=== PATIENT | female | born 1950 | race Caucasian/White ===

== ENCOUNTER 2017-04-18 10:13 | Outpatient (RCR) | payer OTHER ==
--- NOTE | 2017-04-19 15:27 | RS.OPPTEV2 ---
Date of Note: 04/18/17 Visit #: 1 Date of Evaluation: 04/18/17 Payer Source: MEDICARE Surgery Performed?: No Treatment Diagnosis: low back pain History of Condition/Mechanism of Injury:: pt has had LBP for approx 2 yrs started after fall. Prior Level of Function.....Patient was independent with: ADL's, Self Care, Caregiving, Ambulation/Mobility, Community Integration/Access Functional Limitations: Sleep, Self Care, ADL's, Standing, Bending, Ambulation, Community Access/Integration Current Subjective/complaints:: pt states she has been getting epidural injections every [address] Hinojosa in pain management. pt states she is also suffering from pneumonia. *Precautions: limit bending, twisting, lifting Medical History Medical History: Hypertension, CVA/TIA, Diabetes, Arthritis, Cancer (breast) Medical History Comments:: Patient had all lymph nodes removed from the right axilla. Reports no problems with lymphedema in the right UE, asthma Surgical History: Mastectomy Diagnostic Testing/Imaging:: pt states she has had MRI and xrays not sure when Hx Home Medications: will bring list of medications Patient's Goals: Decrease pain Pain Assessment - Pain Description Pain Location: low back Pain Description: Sharp, Aching Current Pain Intensity: 7/10 Worst Pain Intensity: 10/10 Other Comments regarding Pain:: pain increases with any movement, standing, walking Functional Outcome Measure Oswestry LBP: 41 (82%) - G Codes & Severity Modifier G Codes & Modifier: mobility current CM. mobility goal CM. mobility dc CM Source of G Code score: oswestry low back pain scale. Observation - Observation Posture: Forward Head, Rounded Shoulders, Increased Thoracic Kyphosis, Increased Lumbar Lordosis Handedness: Right Gait - Gait Pattern General Gait Pattern Observation: Crouched Gait, Decrease Stride Lngth (R), Decrease Stride Lngth (L) Gait Comments: pt amb with cane with decreased step length,flexed posture, and increased lat sway General Range of Motion: BUE WFL's with pain. 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 L shld flex 3/5, elbow flex/ ext 3+/5. R UE grossly 4/5. LLE hip flex 3/5, knee flex/ext 3/5. RLE hip flex 3+/5, knee flex/ext 4/5 - ROM Lumbar Flexion: Hand reach to Mid-Thighs Sidebending to Left: Reach to Mid-thigh Sidebending to Right: Reach to Mid-thigh Lumbar Spine ROM Limitations: Soft Tissue Tightness, Muscle Weakness, Pain Comments: pt with significant pain with all lumbar ROM, pt unable to tolerate lying supine on table - Special Tests SLR Test: Positive Left, Positive Right Palpation Palpation Findings: Tenderness, Trigger Point, Muscle Guarding Comments:: significant tenderness to palpation, muscle guarding, and trigger points in lumbar paraspinal muscles Sensation - Sensation Right Lower Extremity: Impaired Left Lower Extremity: Impaired Comments: n/t B feet Balance - Sitting Balance Static Sitting Balance: Good Dynamic Sitting Balance: Good - Standing Balance Static Standing Balance: Good Dynamic Standing Balance: Fair - Comments Balance Assessment Comments: pt balance limited due to pain, limited ROM - Heat/Cryotherapy Treatment: Cryotherapy Interventions - Exercise/Activities/Manual Therapy Exercises/Activities: NA Manual Therapy: NA HOME EXERCISE PROGRAM: pt given written HEP including ball squeeze, pelvic tilt , hamstring stretch - Charges Timed Code Treatment Minutes: 52 Total Treatment Time: 70 Procedures billed for this date of service:: eval med, cold pack Assessment Assessment: pt presents with decreased lumbar ROM, significant pain with all movement. Feel pt is unable to tolerate conventional PT due to pain in lumbar spine, hips, knees which is uncontrolled. All parts of assessment cause increase pain. Feel pt would benefit from aqua therapy to strengthen, decrease pain. pt order transferred to [facility] so pt can try aqua therapy for her LBP. Patient Education: Education of diagnosis, Education of Plan of Care Rehab Potential: Fair Plan - Treatment to be Provided Procedures: Patient Education Modalities: No Modalities Other:: pt order transferred to [facility] to allow pt to do aqua therapy to decrease pain and increase flexibility and strength. - Treatment Plan Frequency: eval only Duration: One time treatment ORDER # VISITS AND/OR THROUGH DATE: 04/18/17 - Treatment Code (1) Low back pain Code(s): M54.5 - LOW BACK PAIN Qualifiers: Chronicity: chronic Back pain laterality: unspecified Sciatica presence: without sciatica Qualified Code(s): M54.5 - Low back pain; G89.29 - Other chronic pain; G89.29 - Other chronic pain (2) Osteoarthritis Code(s): M19.90 - UNSPECIFIED OSTEOARTHRITIS, UNSPECIFIED SITE Qualifiers: Osteoarthritis location: multiple joints Osteoarthritis type: primary Qualified Code(s): M15.0 - Primary generalized (osteo)arthritis
== END 2017-04-27 ==
DX: M54.5 Low back pain (principal)